=== PATIENT | female | born 1975 | race Caucasian/White ===

== ENCOUNTER 2017-01-31 15:12 | Outpatient (CLI) | payer BC ==
--- NOTE | 2017-02-01 15:51 | Magnetic Resonance Report ---
MRI LEFT KNEE WITHOUT CONTRAST: 01/31/17 CLINICAL: Pain and swelling of the knee. TECHNIQUE: Sagittal proton density fat sat and T2, coronal T2 fat sat and proton density and axial gradient T2*sequences on a 1.5 [employer] magnet. FINDINGS: The medial meniscus is intact and the lateral meniscus is intact. Intact cruciate ligaments and intact collateral ligaments. Intact posterolateral corner structures including the popliteus tendon. Normal marrow signal with no bone contusion or fracture. Intact patella with normal cartilage, tendon and retinaculum. There is a large knee joint effusion. No intra-articular loose body identified. No popliteal cyst. IMPRESSION: Large knee joint effusion in otherwise normal. No meniscal or ligamentous injury.
== END 2017-01-31 15:13 | disposition home or self-care (01) ==
LOC: SPVIMAG 15:12
PROVIDERS: ATTEND Family Medicine
DX: M25.462 Effusion, left knee (principal); M25.562 Pain in left knee
CPT/HCPCS: 73721

== ENCOUNTER 2019-06-04 15:56 | Outpatient (CLI) | payer BC ==
--- NOTE | 2019-06-08 10:36 | Mammography Report ---
DIGITAL SCREENING MAMMOGRAM WITH CAD, 06/04/2019 INDICATION: Routine screening mammography. TECHNIQUE: Digital bilateral 2D mammography was obtained in the craniocaudal and mediolateral obliq ue projections. This examination was interpreted with the benefit of Computer-Aided Detection analysi s. COMPARISON: 03/22/2016 and 08/06/2014 FINDINGS: Breast Density: The breasts are heterogeneously dense, which may obscure small masses. Right asymmetries require additional imaging. No architectural distortion or suspicious calcification s of the right breast. There is no evidence of dominant mass, suspicious calcifications or architectu ral distortion in the left breast. IMPRESSION: Right asymmetries requiring additional imaging. Recommend recall for right lateral and sp ot compression MLO and CC views and right breast ultrasound if needed. Follow up recommendation: Routine yearly Category 0: Incomplete. Needs additional imaging evaluation and/or prior mammograms for comparison. A "normal" or negative report should not discourage follow up or biopsy of a clinically significant f inding. A written summary of these findings will be mailed to the patient. The patient will be entered into a mammography reporting system which will generate a reminder letter for the patient's next appointmen t at the appropriate interval. The [employer] recommends yearly mammograms starting at age 40 and continuing as l armando as a woman is in good health. Breast MRI is recommended for women with an approximate 20-25% or greater lifetime risk of breast cancer, including women with a strong family history of breast or ova june cancer or who have been treated for Hodgkin's disease. Signer Name: Yoshi Larry MD Signed: 06/08/2019 10:31 AM Workstation Name: [id number]
== END 2019-06-04 15:57 | disposition home or self-care (01) ==
LOC: SPVWC 15:56
PROVIDERS: ATTEND Obstetrics & Gynecology
DX: Z12.31 Encounter for screening mammogram for malignant neoplasm of breast (principal)
CPT/HCPCS: 77067

== ENCOUNTER 2019-07-14 14:44 | Outpatient (CLI) | payer BC ==
--- NOTE | 2019-07-14 15:28 | Mammography Report ---
DIGITAL DIAGNOSTIC MAMMOGRAM WITH CAD, 07/14/2019 INDICATION: ABNORMAL MAMMOGRAM TECHNIQUE: Digital right mammographic imaging was performed. Spot compression views were obtained. This examination was interpreted with the benefit of Computer-aided Detection analysis. COMPARISON06/04/2019 FINDINGS: Breast Density: The breasts are heterogeneously dense, which may obscure small masses. ML and spot compression MLO and CC views performed and are negative. Satisfactory effacement of asymm etries. IMPRESSION: No mammographic evidence of malignancy. Follow up recommendation: Routine yearly BI-RADS Category 1: Negative. A "normal" or negative report should not discourage follow up or biopsy of a clinically significant f inding. A written summary of these findings will be mailed to the patient. The patient will be entered into a mammography reporting system which will generate a reminder letter for the patient's next appointmen t at the appropriate interval. According to the [employer], yearly mammograms are recommended starting at age 40 and continuing as long as a woman is in good health. Breast MRI is recommended for women with an yao roximately 20-25% or greater lifetime risk of breast cancer, including women with a strong family his tory of breast or ovarian cancer and women who have been treated for Hodgkin's disease. Signer Name: Yoshi Larry MD Signed: 07/14/2019 3:24 PM Workstation Name: [id number]
== END 2019-07-14 14:45 | disposition home or self-care (01) ==
LOC: SPVWC 14:44
PROVIDERS: ATTEND Obstetrics & Gynecology
DX: R92.8 Other abnormal and inconclusive findings on diagnostic imaging of breast (principal); N64.89 Other specified disorders of breast